=== PATIENT | male | born 1990 ===

== ENCOUNTER 2019-02-15 04:23 | Emergency (ER) | payer SELFPAY ==
[~2019-02-15] VITALS: Ht 185.4 cm; Wt 74.8 kg
--- NOTE | 2019-02-15 04:23 | NUR ---
ED Nurse Note: PT BROUGHT IN BY RA 24 FROM HOME FOR C/O ASTHMA ATTACK WITH SOB AND COUGH SINCE 2 DAYS AGO.
[2019-02-15 05:35] VITALS: BP 140/94
[2019-02-15] MEDS ORDERED: Albuterol ud Inhalation HHN ONE (06:00)
--- NOTE | 2019-02-15 06:02 | NUR ---
ED Nurse Note: report given to yousif ashley, endorsed care
[2019-02-15] MEDS ORDERED: PREDNISONE20 MG ORAL (06:27)
[2019-02-15] MEDS ORDERED: ALBUTEROL SULF8.5 GM INH (06:27)
--- NOTE | 2019-02-15 06:27 | Emergency Room Report ---
History of Present Illness General Chief Complaint: Asthma Source: Patient Present Illness HPI 28-year-old male with history of asthma who presents with 2 days of cough and nasal congestion with respiratory distress. He reports running out of his inhaler last night. He called EMS and was given 1 nebulizer with moderate improvement. Patientdid not have influenza vaccination this year. Patient denies any fevers, chills, nausea or vomiting. Allergies: Coded Allergies: No Known Allergies (Unverified , 02/15/19) Nursing Documentation-[facility] Past Medical History: No Stated History Review of Systems Constitutional: Denies: chills, fever Respiratory: Reports: cough, shortness of breath Cardiovascular: Denies: chest pain, palpitations Gastrointestinal: Denies: diarrhea, vomiting Genitourinary: Denies: hematuria, pain Musculoskeletal: Denies: joint swelling Skin: Denies: rash, lesions Neurological: Denies: headache, dizziness Physical Exam Vital Signs Date Time Temp Pulse Resp B/P (MAP) Pulse Ox O2 Delivery O2 Flow Rate FiO2 02/15/19 04:03 100 21 144/98 (113) 95 Room Air 02/15/19 06:08 21 Sp02 EP Interpretation: reviewed General Appearance: well appearing, no apparent distress, non-toxic Head: normocephalic, atraumatic Eyes: bilateral eye normal inspection ENT: hearing grossly normal, EOM grossly intact, moist mucus membranes Neck: supple Respiratory: lungs clear, no rhonchi, no respiratory distress, no retraction, no accessory muscle use, speaking full sentences, wheezing - Mild bilaterally expiratory Cardiovascular #1: regular rate, rhythm, normal capillary refill Cardiovascular #2: 2+ radial (R), 2+ radial (L) Gastrointestinal: soft, non-distended Rectal: deferred Musculoskeletal: moves extm spontaneously, no lower extremity edema Neurologic: grossly normal Psychiatric: mood/affect normal Skin: warm/dry, normal turgor Medical Decision Making Diagnostic Impression: Primary Impression: Asthma ER Course 28-year-old male with history of asthma. Reports exacerbation and running out of his medications. Found to be in no respiratory distress but wheezing bilaterally. Patient given nebulizer and steroids. Patient likely has mild acute exacerbation at this time. Recommended close follow-up with primary care doctor. Given prescriptions for inhaler. Given patient is stable, with no signs of respiratory distress, and no rhonchi or decreased breath sounds, will not perform x-ray. However given patient clear warning signs if he worsens then to return to emergency room immediately for further evaluation. Otherwise to see primary care doctor Last Vital Signs Date Time Temp Pulse Resp B/P (MAP) Pulse Ox O2 Delivery O2 Flow Rate FiO2 02/15/19 06:08 98 12 98 Room Air 21 103 14 93 02/15/19 05:35 140/94 Disposition: HOME, SELF-CARE Condition: Stable Scripts Prednisone* (PREDNISONE*) 20 Mg Tablet 40 MG ORAL DAILY, #5 TAB Prov: Ollie Kimball M.D. 02/15/19 Albuterol Sulfate* (ALBUTEROL SULFATE MDI*) 8.5 Gm Hfa.aer.ad 2 PUFF INH Q4H PRN for cough/wheezing, #1 EA 0 Refills Prov: Ollie Kimball M.D. 02/15/19 Referrals: [facility] Patient Instructions: Asthma, Adult Additional Instructions: Please see your primary care doctor in 2 to 3 days for reevaluation. If your symptoms worsen or any new symptoms arise return to emergency room immediately Ollie Kimball M.D. Feb 15, 2019 06:27
[2019-02-15 06:35] VITALS: BP 130/88
--- NOTE | 2019-02-15 06:35 | NUR ---
ER DISCHARGE NOTE: Patient is cleared to be discharged per ERMD, pt is aox4, on room air, with stable vital signs. pt was given dc and prescription instructions, pt was able to verbalize understanding, pt id band removed without complications. pt is able to ambulate with steady gait. pt took all belongings.
== END 2019-02-15 08:00 | disposition home or self-care (01) ==
LOC: EDBD 04:23 → EMR 07:50
DX: J45.909 Unspecified asthma, uncomplicated (principal); Z79.899 Other long term (current) drug therapy
CPT/HCPCS: 99284; J7512